=== PATIENT | male | born 1970 | race Caucasian/White ===

== ENCOUNTER 2017-11-12 14:30 | Emergency (ER) | payer OTHER, SELFPAY ==
--- NOTE | 2017-11-12 14:38 | ED.ABDPAIN ---
HPI - Abdominal Pain <DANICA Gamez - Last Filed: 11/12/17 21:56> General Chief Complaint: Abdominal Pain Stated Complaint: abdominal pain Time Seen by Provider: 11/12/17 14:37 History of Present Illness HPI narrative: 47-year-old male here for complaint of bilateral abdominal pain over the past couple of days. He denies any trauma to the abdomen. No nausea or vomiting. Last bowel movement was earlier today and was normal. No fevers no chills. Does state that he has had some dysuria over the same timeframe. No hematuria. He denies any stressors or relievers of the pain. He denies any other concerns or complaints. MD complaint: abdominal pain Related Data Allergies Allergy/AdvReac Type Severity Reaction Status Date / Time No Known Drug Allergies Allergy Verified 11/12/17 17:08 Review of Systems <DANICA Gamez - Last Filed: 11/12/17 21:56> Constitutional Denies chills, Denies fever(s), Denies lethargy and Denies weakness Eyes Denies change in vision, Denies eye discharge, Denies irritation and Denies loss of vision ENT Ears, Nose, Mouth, and Throat: Denies change in voice, Denies neck pain and Denies sore throat Cardiovascular Denies chest pain, Denies irregular heart rhythm, Denies lightheadedness, Denies palpitations, Denies dyspnea, Denies dyspnea on exertion and Denies orthopnea Respiratory Denies cough, Denies dyspnea, Denies dyspnea on exertion and Denies wheezing Gastrointestinal Gastrointestinal: Reports abdominal pain Genitourinary Reports dysuria Musculoskeletal Denies neck pain Integumentary/Breasts Denies pruritus, Denies erythema, Denies rash and Denies wounds Neurologic Denies confusion, Denies loss of vision and Denies weakness Psychiatric Denies anxiety, Denies confusion, Denies depression, Denies homicidal ideation and Denies suicidal ideation Endocrine Denies palpitations Hematologic/Lymphatic Denies easy bruising Allergic/Immunologic Denies wheezing Exam <DANICA Gamez - Last Filed: 11/12/17 21:56> Initial Vital Signs Initial Vital Signs: Vital Signs Temperature 97.9 F 11/12/17 14:43 Pulse Rate 74 11/12/17 14:43 Respiratory Rate 18 11/12/17 14:43 Blood Pressure 110/73 11/12/17 14:43 Pulse Oximetry 99 11/12/17 14:43 Const General: cooperative and well developed Nutritional Appearance: well nourished Orientation: alert, awake, oriented x3 and not confused [facility] Mouth: oral mucosae normal, oropharynx normal and moist mucous membranes Eyes General: appearance normal, both eyes and all related structures Eyelids: eyelids normal Conjunctivae: conjunctivae normal Sclera: sclerae normal Pupils: PERRL EOM: EOM intact bilaterally Resp Effort & Inspection: normal respiratory effort, able to speak in complete sentences, no respiratory distress and no use of accessory muscles Auscultation: clear to auscultation bilaterally, no rales, no rhonchi and no wheezes Cardio Rate: regular rate Rhythm: regular rhythm Heart Sounds: no click, no gallops, no murmurs and no rubs Pulses: normal peripheral pulses GI Inspection: normal to inspection, no edema and non-distended Palpation: soft, No guarding, No hernia, No mass, No pulsatile mass, No splenomegaly and tender (Generalized tenderness) Auscultation: normal bowel sounds General: No CVA tenderness Skin General: no rashes or lesions noted, No jaundice and No petechiae <Agueda Waldron DO - Last Filed: 11/15/17 08:24> Initial Vital Signs Initial Vital Signs: Vital Signs Temperature 97.9 F 11/12/17 14:43 Pulse Rate 74 11/12/17 14:43 Respiratory Rate 18 11/12/17 14:43 Blood Pressure 110/73 11/12/17 14:43 Pulse Oximetry 99 11/12/17 14:43 Course <DANICA Gamez - Last Filed: 11/12/17 21:56> Orders Ordered: Discontinued Medications Sodium Chloride (Normal Saline 0.9%) 1,000 mls @ 150 mls/hr IV CONT TAMRA Last Infusion: 11/12/17 16:55 Dose: 0 mls/hr Admin: 11/12/17 15:55 Dose: 150 mls/hr Ketorolac Tromethamine (Toradol) 30 mg IV NOW ONE Stop: 11/12/17 14:45 Last Admin: 11/12/17 15:56 Dose: 30 mg Vital Signs - 8 hr 11/12/17 14:43 11/12/17 16:09 Temperature 97.9 F Pulse Rate 74 81 Respiratory Rate 18 17 Blood Pressure 110/73 Blood Pressure [Right Arm] 113/75 Pulse Oximetry 99 100 <Agueda Waldron DO - Last Filed: 11/15/17 08:24> Orders Ordered: Discontinued Medications Sodium Chloride (Normal Saline 0.9%) 1,000 mls @ 150 mls/hr IV CONT TAMRA Last Infusion: 11/12/17 16:55 Dose: 0 mls/hr Admin: 11/12/17 15:55 Dose: 150 mls/hr Ketorolac Tromethamine (Toradol) 30 mg IV NOW ONE Stop: 11/12/17 14:45 Last Admin: 11/12/17 15:56 Dose: 30 mg Vital Signs - 8 hr 11/12/17 14:43 11/12/17 16:09 Temperature 97.9 F Pulse Rate 74 81 Respiratory Rate 18 17 Blood Pressure 110/73 Blood Pressure [Right Arm] 113/75 Pulse Oximetry 99 100 MDM - Abdominal Pain <DANICA Gamez - Last Filed: 11/12/17 21:56> Lab Data Result diagrams: 11/12/17 14:54 11/12/17 14:54 Lab Results 11/12/17 11/12/17 Range/Units 14:54 14:54 WBC 5.0 (4.5-11.0) X10^3/uL RBC 4.09 L (4.5-5.9) X10^6/uL Hgb 12.2 L (13.5-17.5) g/dL Hct 35.8 L (41-53) % MCV 87.5 (80-100) fL MCH 30.0 (26-34) PG MCHC 34.3 (30-36) % RDW 13.7 (11.6-14.8) % Plt Count 338 (150-400) X10^3/uL Neut % (Auto) 33.6 L (50-75) % Lymph % (Auto) 51.9 H (25-40) % [place] % (Auto) 10.0 (3-14) % Eos % (Auto) 3.6 (2-4) % Baso % (Auto) 0.9 (0-2) % Neut # (Auto) 1700 L (8638-2929) /uL Sodium 141 (137-145) mmol/L Potassium 4.0 (3.4-5.1) mmol/L Chloride 102 (98-107) mmol/L Carbon Dioxide 26 (22-32) mmol/L BUN 17 (9-20) mg/dL Creatinine 1.20 (0.66-1.25) mg/dL Estimated GFR > 60.0 (>60) mL/min BUN/Creatinine Ratio 14.2 (6-22) Glucose 84 (70-100) mg/dL Calcium 9.3 (8.4-10.2) mg/dL Total Bilirubin 0.5 (0.2-1.3) mg/dL AST 40 (17-59) IU/L ALT 48 (21-72) IU/L Alkaline Phosphatase 58 (38-126) U/L Total Protein 7.6 (6.3-8.2) g/dL Albumin 4.5 (3.5-5.0) g/dL Globulin 3.1 (1.7-4.1) g/dL Albumin/Globulin Ratio 1.5 (1.0-2.8) Lipase 71 (23-300) U/L Point of care testing: Urine Dip Bedside Urine Glucose Negative Bedside Urine Bilirubin - Negative Bedside Urine Ketone - Negative Urine Specific [place] 1.015 Bedside Urine Occult Blood - Negative Bedside Urine pH 6.0 Bedside Urine Protein - Negative Bedside Urine Urobilinogen +/- 1mg Bedside Urine Nitrite - Negative Bedside Urine Leukocytes - Negative Esterase Imaging Data CT scan - abdomen: Radiologist's impression: Patient: Rafael Lopez MR#: [id number] : 1970 Acct:[id number] Age/Sex: 47 / M Date of Service: 11/12/17 Loc: ED Accession Number: [id number] Procedure: CT abdomen pelvis w con Ordering Provider: Fran Marin PROCEDURE: CT ABDOMEN PELVIS W CON INDICATIONS: Bilateral abdominal pain for the last couple days TECHNIQUE: After the administration of intravenous contrast, 5 mm thick sections acquired from the diaphragm to the symphysis. 5 mm coronal and sagittal reformats were acquired. For radiation dose reduction, the following was used: automated exposure control, adjustment of mA and/or kV according to patient size. COMPARISON: None. FINDINGS: Image quality: Excellent. ABDOMEN: Lung bases: Lung bases are clear. Heart size is normal. Solid organs: Hepatic steatosis. No focal hepatic lesion. Gallbladder unremarkable. Biliary system is non dilated. Pancreas enhances normally. Spleen is normal in size and enhancement. No adrenal nodules. Kidneys demonstrate normal size and enhancement, without hydronephrosis. Peritoneum and bowel: Bowel loops demonstrate normal wall thickness and caliber. No free fluid or air. Normal appendix Nodes and vessels: No retroperitoneal or mesenteric adenopathy by size criteria. Aorta and inferior vena cava are normal in size. Miscellaneous: No ventral hernias. PELVIS: Genitourinary: Bladder wall thickness is normal. Miscellaneous: No inguinal hernias or adenopathy. Bones: No suspicious bony lesions. No vertebral body compression fractures. IMPRESSION: No acute abnormality. Hepatic steatosis. Normal appendix. Incidental colonic diverticula. Dictated by: Ki Agarwal M.D. on 11/12/2017 at 16:05 Approved by: Ki Agarwal M.D. on 11/12/2017 at 16:08 MDM Narrative Medical decision making narrative: CBC and Chem panel were obtained and were unremarkable. Lipase was obtained was negative. Urinalysis was negative for urinary tract infection or for red blood cells. CT of the abdomen was obtained was negative for any acute findings. No emergent cause of abdominal pain is identified. Differential between abdominal wall pain or for viral illness. Jevz-gul-nmbcknu Tylenol Motrin as needed for any discomfort. Follow up with primary care provider. Return emergency room for any worsening symptoms. <Agueda Waldron DO - Last Filed: 11/15/17 08:24> Lab Data Lab Results 11/12/17 11/12/17 Range/Units 14:54 14:54 WBC 5.0 (4.5-11.0) X10^3/uL RBC 4.09 L (4.5-5.9) X10^6/uL Hgb 12.2 L (13.5-17.5) g/dL Hct 35.8 L (41-53) % MCV 87.5 (80-100) fL MCH 30.0 (26-34) PG MCHC 34.3 (30-36) % RDW 13.7 (11.6-14.8) % Plt Count 338 (150-400) X10^3/uL Neut % (Auto) 33.6 L (50-75) % Lymph % (Auto) 51.9 H (25-40) % [place] % (Auto) 10.0 (3-14) % Eos % (Auto) 3.6 (2-4) % Baso % (Auto) 0.9 (0-2) % Neut # (Auto) 1700 L (5169-8624) /uL Sodium 141 (137-145) mmol/L Potassium 4.0 (3.4-5.1) mmol/L Chloride 102 (98-107) mmol/L Carbon Dioxide 26 (22-32) mmol/L BUN 17 (9-20) mg/dL Creatinine 1.20 (0.66-1.25) mg/dL Estimated GFR > 60.0 (>60) mL/min BUN/Creatinine Ratio 14.2 (6-22) Glucose 84 (70-100) mg/dL Calcium 9.3 (8.4-10.2) mg/dL Total Bilirubin 0.5 (0.2-1.3) mg/dL AST 40 (17-59) IU/L ALT 48 (21-72) IU/L Alkaline Phosphatase 58 (38-126) U/L Total Protein 7.6 (6.3-8.2) g/dL Albumin 4.5 (3.5-5.0) g/dL Globulin 3.1 (1.7-4.1) g/dL Albumin/Globulin Ratio 1.5 (1.0-2.8) Lipase 71 (23-300) U/L Point of care testing: Urine Dip Bedside Urine Glucose Negative Bedside Urine Bilirubin - Negative Bedside Urine Ketone - Negative Urine Specific [place] 1.015 Bedside Urine Occult Blood - Negative Bedside Urine pH 6.0 Bedside Urine Protein - Negative Bedside Urine Urobilinogen +/- 1mg Bedside Urine Nitrite - Negative Bedside Urine Leukocytes - Negative Esterase Discharge Plan Departure Patient Disposition: Home, Self-Care Clinical Impression: Abdominal pain Discharge Date/Time: 11/12/17 16:59 Interventions: ED Discharge Assessment Last Done: 11/12/17 16:58 Instructions: DI for Abdominal Pain-Adult Activity Restrictions/Additional Instructions: Laboratory results and imaging today were unremarkable. Signs and symptoms presents as a abdominal wall pain. Use [id number] Tylenol or Motrin as needed for any discomfort. Follow up with your primary care provider. Return emergency room for any worsening symptoms. Referrals: [facility] [Provider Group] <Agueda Waldron DO - Last Filed: 11/15/17 08:24> Cosign ED Attending Cosalejandroature Attestation: I was immediately available in the department for consultation. Documentation has been reviewed. I agree with assessment and plan.
[2017-11-12 14:43] VITALS: BP 110/73; PULSE 74; RESP 18; TEMP 36.6; O2SAT 99; BMI 26.4
--- NOTE | 2017-11-12 14:45 | DI.CT.S_ITS ---
PROCEDURE: CT ABDOMEN PELVIS W CON INDICATIONS: Bilateral abdominal pain for the last couple days TECHNIQUE: After the administration of intravenous contrast, 5 mm thick sections acquired from the diaphragm to the symphysis. 5 mm coronal and sagittal reformats were acquired. For radiation dose reduction, the following was used: automated exposure control, adjustment of mA and/or kV according to patient size. COMPARISON: None. FINDINGS: Image quality: Excellent. ABDOMEN: Lung bases: Lung bases are clear. Heart size is normal. Solid organs: Hepatic steatosis. No focal hepatic lesion. Gallbladder unremarkable. Biliary system is non dilated. Pancreas enhances normally. Spleen is normal in size and enhancement. No adrenal nodules. Kidneys demonstrate normal size and enhancement, without hydronephrosis. Peritoneum and bowel: Bowel loops demonstrate normal wall thickness and caliber. No free fluid or air. Normal appendix Nodes and vessels: No retroperitoneal or mesenteric adenopathy by size criteria. Aorta and inferior vena cava are normal in size. Miscellaneous: No ventral hernias. PELVIS: Genitourinary: Bladder wall thickness is normal. Miscellaneous: No inguinal hernias or adenopathy. Bones: No suspicious bony lesions. No vertebral body compression fractures. IMPRESSION: No acute abnormality. Hepatic steatosis. Normal appendix. Incidental colonic diverticula. Dictated by: Ki Agarwal M.D. on 11/12/2017 at 16:05 Approved by: Ki Agarwal M.D. on 11/12/2017 at 16:08
--- NOTE | 2017-11-12 15:03 | ED_ITS ---
HPI - Abdominal Pain <DANICA Gamez - Last Filed: 11/12/17 21:56> General Chief Complaint: Abdominal Pain Stated Complaint: abdominal pain Time Seen by Provider: 11/12/17 14:37 History of Present Illness HPI narrative: 47-year-old male here for complaint of bilateral abdominal pain over the past couple of days. He denies any trauma to the abdomen. No nausea or vomiting. Last bowel movement was earlier today and was normal. No fevers no chills. Does state that he has had some dysuria over the same timeframe. No hematuria. He denies any stressors or relievers of the pain. He denies any other concerns or complaints. MD complaint: abdominal pain Related Data Allergies Allergy/AdvReac Type Severity Reaction Status Date / Time No Known Drug Allergies Allergy Verified 11/12/17 17:08 Review of Systems <DANICA Gamez - Last Filed: 11/12/17 21:56> Constitutional Denies chills, Denies fever(s), Denies lethargy and Denies weakness Eyes Denies change in vision, Denies eye discharge, Denies irritation and Denies loss of vision ENT Ears, Nose, Mouth, and Throat: Denies change in voice, Denies neck pain and Denies sore throat Cardiovascular Denies chest pain, Denies irregular heart rhythm, Denies lightheadedness, Denies palpitations, Denies dyspnea, Denies dyspnea on exertion and Denies orthopnea Respiratory Denies cough, Denies dyspnea, Denies dyspnea on exertion and Denies wheezing Gastrointestinal Gastrointestinal: Reports abdominal pain Genitourinary Reports dysuria Musculoskeletal Denies neck pain Integumentary/Breasts Denies pruritus, Denies erythema, Denies rash and Denies wounds Neurologic Denies confusion, Denies loss of vision and Denies weakness Psychiatric Denies anxiety, Denies confusion, Denies depression, Denies homicidal ideation and Denies suicidal ideation Endocrine Denies palpitations Hematologic/Lymphatic Denies easy bruising Allergic/Immunologic Denies wheezing Exam <DANICA Gamez - Last Filed: 11/12/17 21:56> Initial Vital Signs Initial Vital Signs: Vital Signs Temperature 97.9 F 11/12/17 14:43 Pulse Rate 74 11/12/17 14:43 Respiratory Rate 18 11/12/17 14:43 Blood Pressure 110/73 11/12/17 14:43 Pulse Oximetry 99 11/12/17 14:43 Const General: cooperative and well developed Nutritional Appearance: well nourished Orientation: alert, awake, oriented x3 and not confused [facility] Mouth: oral mucosae normal, oropharynx normal and moist mucous membranes Eyes General: appearance normal, both eyes and all related structures Eyelids: eyelids normal Conjunctivae: conjunctivae normal Sclera: sclerae normal Pupils: PERRL EOM: EOM intact bilaterally Resp Effort & Inspection: normal respiratory effort, able to speak in complete sentences, no respiratory distress and no use of accessory muscles Auscultation: clear to auscultation bilaterally, no rales, no rhonchi and no wheezes Cardio Rate: regular rate Rhythm: regular rhythm Heart Sounds: no click, no gallops, no murmurs and no rubs Pulses: normal peripheral pulses GI Inspection: normal to inspection, no edema and non-distended Palpation: soft, No guarding, No hernia, No mass, No pulsatile mass, No splenomegaly and tender (Generalized tenderness) Auscultation: normal bowel sounds General: No CVA tenderness Skin General: no rashes or lesions noted, No jaundice and No petechiae <Agueda Waldron DO - Last Filed: 11/15/17 08:24> Initial Vital Signs Initial Vital Signs: Vital Signs Temperature 97.9 F 11/12/17 14:43 Pulse Rate 74 11/12/17 14:43 Respiratory Rate 18 11/12/17 14:43 Blood Pressure 110/73 11/12/17 14:43 Pulse Oximetry 99 11/12/17 14:43 Course <DANICA Gamez - Last Filed: 11/12/17 21:56> Orders Ordered: Discontinued Medications Sodium Chloride (Normal Saline 0.9%) 1,000 mls @ 150 mls/hr IV CONT TAMRA Last Infusion: 11/12/17 16:55 Dose: 0 mls/hr Admin: 11/12/17 15:55 Dose: 150 mls/hr Ketorolac Tromethamine (Toradol) 30 mg IV NOW ONE Stop: 11/12/17 14:45 Last Admin: 11/12/17 15:56 Dose: 30 mg Vital Signs - 8 hr 11/12/17 14:43 11/12/17 16:09 Temperature 97.9 F Pulse Rate 74 81 Respiratory Rate 18 17 Blood Pressure 110/73 Blood Pressure [Right Arm] 113/75 Pulse Oximetry 99 100 <Agueda Waldron DO - Last Filed: 11/15/17 08:24> Orders Ordered: Discontinued Medications Sodium Chloride (Normal Saline 0.9%) 1,000 mls @ 150 mls/hr IV CONT TAMRA Last Infusion: 11/12/17 16:55 Dose: 0 mls/hr Admin: 11/12/17 15:55 Dose: 150 mls/hr Ketorolac Tromethamine (Toradol) 30 mg IV NOW ONE Stop: 11/12/17 14:45 Last Admin: 11/12/17 15:56 Dose: 30 mg Vital Signs - 8 hr 11/12/17 14:43 11/12/17 16:09 Temperature 97.9 F Pulse Rate 74 81 Respiratory Rate 18 17 Blood Pressure 110/73 Blood Pressure [Right Arm] 113/75 Pulse Oximetry 99 100 MDM - Abdominal Pain <DANICA Gamez - Last Filed: 11/12/17 21:56> Lab Data Result diagrams: 11/12/17 14:54 11/12/17 14:54 Lab Results 11/12/17 11/12/17 Range/Units 14:54 14:54 WBC 5.0 (4.5-11.0) X10^3/uL RBC 4.09 L (4.5-5.9) X10^6/uL Hgb 12.2 L (13.5-17.5) g/dL Hct 35.8 L (41-53) % MCV 87.5 (80-100) fL MCH 30.0 (26-34) PG MCHC 34.3 (30-36) % RDW 13.7 (11.6-14.8) % Plt Count 338 (150-400) X10^3/uL Neut % (Auto) 33.6 L (50-75) % Lymph % (Auto) 51.9 H (25-40) % [place] % (Auto) 10.0 (3-14) % Eos % (Auto) 3.6 (2-4) % Baso % (Auto) 0.9 (0-2) % Neut # (Auto) 1700 L (9048-9550) /uL Sodium 141 (137-145) mmol/L Potassium 4.0 (3.4-5.1) mmol/L Chloride 102 (98-107) mmol/L Carbon Dioxide 26 (22-32) mmol/L BUN 17 (9-20) mg/dL Creatinine 1.20 (0.66-1.25) mg/dL Estimated GFR > 60.0 (>60) mL/min BUN/Creatinine Ratio 14.2 (6-22) Glucose 84 (70-100) mg/dL Calcium 9.3 (8.4-10.2) mg/dL Total Bilirubin 0.5 (0.2-1.3) mg/dL AST 40 (17-59) IU/L ALT 48 (21-72) IU/L Alkaline Phosphatase 58 (38-126) U/L Total Protein 7.6 (6.3-8.2) g/dL Albumin 4.5 (3.5-5.0) g/dL Globulin 3.1 (1.7-4.1) g/dL Albumin/Globulin Ratio 1.5 (1.0-2.8) Lipase 71 (23-300) U/L Point of care testing: Urine Dip Bedside Urine Glucose Negative Bedside Urine Bilirubin - Negative Bedside Urine Ketone - Negative Urine Specific [place] 1.015 Bedside Urine Occult Blood - Negative Bedside Urine pH 6.0 Bedside Urine Protein - Negative Bedside Urine Urobilinogen +/- 1mg Bedside Urine Nitrite - Negative Bedside Urine Leukocytes - Negative Esterase Imaging Data CT scan - abdomen: Radiologist's impression: Patient: Rafael Lopez MR#: [id number] : 1970 Acct:[id number] Age/Sex: 47 / M Date of Service: 11/12/17 Loc: ED Accession Number: [id number] Procedure: CT abdomen pelvis w con Ordering Provider: Fran Marin PROCEDURE: CT ABDOMEN PELVIS W CON INDICATIONS: Bilateral abdominal pain for the last couple days TECHNIQUE: After the administration of intravenous contrast, 5 mm thick sections acquired from the diaphragm to the symphysis. 5 mm coronal and sagittal reformats were acquired. For radiation dose reduction, the following was used: automated exposure control, adjustment of mA and/or kV according to patient size. COMPARISON: None. FINDINGS: Image quality: Excellent. ABDOMEN: Lung bases: Lung bases are clear. Heart size is normal. Solid organs: Hepatic steatosis. No focal hepatic lesion. Gallbladder unremarkable. Biliary system is non dilated. Pancreas enhances normally. Spleen is normal in size and enhancement. No adrenal nodules. Kidneys demonstrate normal size and enhancement, without hydronephrosis. Peritoneum and bowel: Bowel loops demonstrate normal wall thickness and caliber. No free fluid or air. Normal appendix Nodes and vessels: No retroperitoneal or mesenteric adenopathy by size criteria. Aorta and inferior vena cava are normal in size. Miscellaneous: No ventral hernias. PELVIS: Genitourinary: Bladder wall thickness is normal. Miscellaneous: No inguinal hernias or adenopathy. Bones: No suspicious bony lesions. No vertebral body compression fractures. IMPRESSION: No acute abnormality. Hepatic steatosis. Normal appendix. Incidental colonic diverticula. Dictated by: Ki Agarwal M.D. on 11/12/2017 at 16:05 Approved by: Ki Agarwal M.D. on 11/12/2017 at 16:08 MDM Narrative Medical decision making narrative: CBC and Chem panel were obtained and were unremarkable. Lipase was obtained was negative. Urinalysis was negative for urinary tract infection or for red blood cells. CT of the abdomen was obtained was negative for any acute findings. No emergent cause of abdominal pain is identified. Differential between abdominal wall pain or for viral illness. Gedi-iae-lwtshay Tylenol Motrin as needed for any discomfort. Follow up with primary care provider. Return emergency room for any worsening symptoms. <Agueda Waldron DO - Last Filed: 11/15/17 08:24> Lab Data Lab Results 11/12/17 11/12/17 Range/Units 14:54 14:54 WBC 5.0 (4.5-11.0) X10^3/uL RBC 4.09 L (4.5-5.9) X10^6/uL Hgb 12.2 L (13.5-17.5) g/dL Hct 35.8 L (41-53) % MCV 87.5 (80-100) fL MCH 30.0 (26-34) PG MCHC 34.3 (30-36) % RDW 13.7 (11.6-14.8) % Plt Count 338 (150-400) X10^3/uL Neut % (Auto) 33.6 L (50-75) % Lymph % (Auto) 51.9 H (25-40) % [place] % (Auto) 10.0 (3-14) % Eos % (Auto) 3.6 (2-4) % Baso % (Auto) 0.9 (0-2) % Neut # (Auto) 1700 L (9278-1166) /uL Sodium 141 (137-145) mmol/L Potassium 4.0 (3.4-5.1) mmol/L Chloride 102 (98-107) mmol/L Carbon Dioxide 26 (22-32) mmol/L BUN 17 (9-20) mg/dL Creatinine 1.20 (0.66-1.25) mg/dL Estimated GFR > 60.0 (>60) mL/min BUN/Creatinine Ratio 14.2 (6-22) Glucose 84 (70-100) mg/dL Calcium 9.3 (8.4-10.2) mg/dL Total Bilirubin 0.5 (0.2-1.3) mg/dL AST 40 (17-59) IU/L ALT 48 (21-72) IU/L Alkaline Phosphatase 58 (38-126) U/L Total Protein 7.6 (6.3-8.2) g/dL Albumin 4.5 (3.5-5.0) g/dL Globulin 3.1 (1.7-4.1) g/dL Albumin/Globulin Ratio 1.5 (1.0-2.8) Lipase 71 (23-300) U/L Point of care testing: Urine Dip Bedside Urine Glucose Negative Bedside Urine Bilirubin - Negative Bedside Urine Ketone - Negative Urine Specific [place] 1.015 Bedside Urine Occult Blood - Negative Bedside Urine pH 6.0 Bedside Urine Protein - Negative Bedside Urine Urobilinogen +/- 1mg Bedside Urine Nitrite - Negative Bedside Urine Leukocytes - Negative Esterase Discharge Plan Departure Patient Disposition: Home, Self-Care Clinical Impression: Abdominal pain Discharge Date/Time: 11/12/17 16:59 Interventions: ED Discharge Assessment Last Done: 11/12/17 16:58 Instructions: DI for Abdominal Pain-Adult Activity Restrictions/Additional Instructions: Laboratory results and imaging today were unremarkable. Signs and symptoms presents as a abdominal wall pain. Use [id number] Tylenol or Motrin as needed for any discomfort. Follow up with your primary care provider. Return emergency room for any worsening symptoms. Referrals: [facility] [Provider Group] <Agueda Waldron DO - Last Filed: 11/15/17 08:24> Cosign ED Attending Cosalejandroature Attestation: I was immediately available in the department for consultation. Documentation has been reviewed. I agree with assessment and plan.
[2017-11-12 15:04] LABS: Add Manual Diff / Slide Review NO; Basophils Percent Auto 0.9 % (0-2); Eosinophils Percent Auto 3.6 % (2-4); Hematocrit 35.8 % (41-53); Hemoglobin 12.2 g/dL (13.5-17.5); Lymphocytes Percent Auto 51.9 % (25-40); Mean Corpuscular HGB Conc 34.3 % (30-36); Mean Corpuscular Volume 87.5 fL (80-100); Neutrophils Absolute Auto 1700 /uL (3000-5900); Neutrophils Percent Auto 33.6 % (50-75); Platelet Count 338 X10^3/uL (150-400); Red Blood Cell Count 4.09 X10^6/uL (4.5-5.9); Red Cell Distribution Width 13.7 % (11.6-14.8)
[2017-11-12 15:15] LABS: Alanine Aminotransferase 48 IU/L (21-72); Albumin 4.5 g/dL (3.5-5.0); Albumin Globulin Ratio 1.5 (1.0-2.8); Alkaline Phosphatase 58 U/L (38-126); Aspartate Aminotransferase 40 IU/L (17-59); BUN Creatinine Ratio 14.2 (6-22); Bilirubin Total 0.5 mg/dL (0.2-1.3); Blood Urea Nitrogen 17 mg/dL (9-20); Calcium 9.3 mg/dL (8.4-10.2); Carbon Dioxide 26 mmol/L (22-32); Chloride 102 mmol/L (98-107); Estimated Glomerular Filt Rate > 60.0 mL/min (>60); Globulin 3.1 g/dL (1.7-4.1); Glucose 84 mg/dL (70-100); HEMOLYSIS < 15 (0-50); Lipase 71 U/L (23-300); Sodium 141 mmol/L (137-145); Total Protein 7.6 g/dL (6.3-8.2)
[2017-11-12] MEDS: SODIUM CHLORIDE 0.9% 1,000 ML 150 ML IV (15:55)
[2017-11-12] MEDS: KETOROLAC 60 MG/2 ML VIAL 30 MG IV (15:56)
[2017-11-12 16:09] VITALS: BP 113/75; PULSE 81; RESP 17; O2SAT 100
== END 2017-11-12 16:59 | disposition home or self-care (01) ==
PROVIDERS: Emergency Provider Nurse Practitioner Family
DX: R10.9 Unspecified abdominal pain (principal)
CPT/HCPCS: 36591; 74177; 80053; 81003; 83690; 85025; 96361; 96374; 99283; 99285; J1885; Q9967